=== PATIENT | male | born 2000 | race African-American/Black ===

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

== ENCOUNTER 2024-01-01 17:01 | Emergency (ER) | payer OTHER ==
[2024-01-01] MEDS ORDERED: Acetaminophen 500 MG TAB ONE (17:52)
[2024-01-01] MEDS ORDERED: Ketorolac Tromethamine 30 MG (1 mL) VIAL ONE (17:52)
== END 2024-01-01 18:37 | disposition home or self-care (01) ==
LOC: CSHERS 17:01
DX: M25.462 Effusion, left knee (principal)
CPT/HCPCS: 96372; 99283; J1885

== ENCOUNTER 2024-12-06 10:14 | Emergency (ER) | payer BC, OTHER ==
[2024-12-06] MEDS ORDERED: Ketorolac Tromethamine 30 MG (1 mL) VIAL ONE (11:04)
== END 2024-12-06 11:20 | disposition home or self-care (01) ==
LOC: CSHERS 10:14
DX: J02.9 Acute pharyngitis, unspecified (principal)
CPT/HCPCS: 87081; 87426; 87430; 96372; 99282; J1885

== ENCOUNTER 2025-01-30 23:12 | Emergency (ER) | payer BC | END 2025-01-31 04:15 | disposition home or self-care (01) | LOC: CSHERS 23:12 | DX: B34.9 Viral infection, unspecified (principal) | CPT/HCPCS: 87081; 87428; 87430; 99284 ==